=== PATIENT | male | born 1945 | race African-American/Black ===

== ENCOUNTER 2019-10-28 19:34 | Emergency (ER) | payer BC ==
[~2019-10-28] VITALS: Ht 175.3 cm; Wt 72.0 kg
[~2019-10-28 19:34] MED LIST: ATOR10TA69 PO; CARV6.2548 PO; CHLO25TA2 PO; CHOL100053 PO; CLOP75TA33 PO; LISI10TA5 PO; POTA10CA42 PO
[2019-10-28 19:41] VITALS: BP 146/84
[2019-10-28 20:55] LABS: BASOPHILS % 0.4 % (0.0-2.0); EOSINOPHILS % 0.9 % (0.0-5.0); HEMATOCRIT. 38.9 % (42.0-52.0); HEMOGLOBIN. 12.8 g/dL (14.0-18.0); LYMPHOCYTES % 24.9 % (20.0-50.0); MEAN CORPUSCULAR HEMOGLOBIN 31.4 pg (28.0-32.0); MEAN CORPUSCULAR VOLUME 95.7 fL (80.0-94.0); MEAN PLATELET VOLUME 8.4 fl (7.4-10.4); MONOCYTES % 12.8 % (2.0-8.0); PLATELET 168 x1000/uL (130-400); RED BLOOD CELL COUNT 4.06 mill/uL (4.7-6.1); RED CELL DISTRIBUTION WIDTH 13.7 % (11.6-14.6)
[2019-10-28 21:13] LABS: CHLORIDE 107 mEq/L (98-107)
== END 2019-10-29 00:49 | disposition home or self-care (01) ==
LOC: ER 19:34
DX: Z03.818 Encounter for observation for suspected exposure to other biological agents ruled out (principal); R53.1 Weakness; K92.2 Gastrointestinal hemorrhage, unspecified; I25.10 Atherosclerotic heart disease of native coronary artery without angina pectoris; Z98.890 Other specified postprocedural states; Z96.659 Presence of unspecified artificial knee joint; Z79.899 Other long term (current) drug therapy
CPT/HCPCS: 36415; 71045; 80053; 83880; 84484; 85025; 93005; 99285; C9803; U0003